=== PATIENT | female | born 1970 | race Caucasian/White ===

== ENCOUNTER 2023-03-09 15:54 | Emergency (ER) | payer BC ==
[~2023-03-09] VITALS: Ht 175.3 cm; Wt 79.5 kg
[2023-03-09] MEDS ORDERED: FOLI400T13 PO (16:35)
[2023-03-09] MEDS ORDERED: ACET325C5 PO (16:39)
[2023-03-09] MEDS ORDERED: B12-1CHW PO (16:39)
[2023-03-09] MEDS ORDERED: BIOT1CAP2 PO (16:39)
[2023-03-09] MEDS ORDERED: CITA20TA6 PO (16:39)
[2023-03-09] MEDS ORDERED: PROTPAK PO (16:39)
[2023-03-09] MEDS ORDERED: NORCO, ANEXSIA 5/325MG TABLET (HYDROcodone/ACETAMINOPHEN) PO ONE (18:00)
[2023-03-09] MEDS ORDERED: HYDR-3713 PO (18:29)
[2023-03-09 18:52] VITALS: BP 176/110; TEMP 98.4; O2SAT 96
== END 2023-03-09 18:55 | disposition home or self-care (01) ==
LOC: M ED 16:44
DX: S42.352A Displaced comminuted fracture of shaft of humerus, left arm, initial encounter for closed fracture (principal); W19.XXXA Unspecified fall, initial encounter; Z79.1 Long term (current) use of non-steroidal anti-inflammatories (NSAID); Z79.899 Other long term (current) drug therapy

== ENCOUNTER → 2023-03-09 | Outpatient (CLI) | payer BC ==
[~2023-03-09] MED LIST: ACET325C5 PO; B12-1CHW PO; BIOT1CAP2 PO; CITA20TA6 PO; FOLI400T13 PO; HYDR-3713 PO; PROTPAK PO
== END ==
LOC: M RAD 15:27
PROVIDERS: ATTEND Physician Assistant
DX: S42.212A Unspecified displaced fracture of surgical neck of left humerus, initial encounter for closed fracture (principal); X58.XXXA Exposure to other specified factors, initial encounter; Y92.9 Unspecified place or not applicable; Y93.9 Activity, unspecified; Y99.9 Unspecified external cause status